=== PATIENT | female | born 2000 | race Caucasian/White ===

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

== ENCOUNTER 2019-03-19 14:21 | Emergency (ER) | payer MEDICAID, SELFPAY ==
[2019-03-19 14:21] VITALS: BP 145/77; RESP 16; TEMP 36.3; O2SAT 98; BMI 44.0
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
--- NOTE | 2019-03-19 15:46 | ED.DEP ---
ED Disposition - Plan for ED Patient: Disposition: Home or Assisted Living Instructions: Hematoma Referrals: Aaliyah Kingsley MD [Primary Care Provider] - As Needed Additional Instructions: Ice to your buttocks and hamstrings are bruised. Motrin for pain and swelling and Tylenol for pain. This may take several weeks to resolve. It should progressively improve.
[2019-03-19 15:57] VITALS: BP 136/70; PULSE 80; RESP 16; O2SAT 98
== END 2019-03-19 15:58 | disposition home or self-care (01) ==
PROVIDERS: Emergency Provider Physician Assistant Medical; Family Provider Pediatrics; PCP Pediatrics
DX: S30.0XXA Contusion of lower back and pelvis, initial encounter (principal); S70.12XA Contusion of left thigh, initial encounter; S70.11XA Contusion of right thigh, initial encounter; E66.9 Obesity, unspecified; X58.XXXA Exposure to other specified factors, initial encounter; Y93.39 Activity, other involving climbing, rappelling and jumping off; Y92.9 Unspecified place or not applicable
CPT/HCPCS: 72100; 72170; 99282